=== PATIENT | female | born 1990 | race Caucasian/White ===

== ENCOUNTER 2021-01-26 12:06 | Emergency (ER) | payer BC, OTHER ==
[2021-01-26 12:22] VITALS: BMI 35.2
[2021-01-26] MEDS ORDERED: CASIRIVIMAB/IMDEVIMAB 10 ML in SODIUM CHLORIDE 100 ML IVPB ONE (12:37)
[2021-01-26 13:44] LABS: BASO % 0.7 % (0-2.0); EOS % 5.7 % (0-4.5); HEMATOCRIT 41.3 % (32.4-45.2); HEMOGLOBIN 14.3 GM/dL (10.7-15.3); LYMPH % 31.9 % (8-40); MCH 32.1 pg (25.7-33.7); MCHC 34.5 g/dl (32.0-36.0); MEAN CELL VOLUME 92.8 fl (80-96); MEAN PLT VOLUME 8.1 fl (7.5-11.1); MONO % 7.3 % (3.8-10.2); NEUT % 54.4 % (42.8-82.8); PLATELET COUNT 432 10^3/uL (134-434); RBC 4.45 M/mm3 (3.60-5.2); RDW 14.1 % (11.6-15.6)
[2021-01-26 14:03] LABS: CALCIUM 9.2 mg/dL (8.5-10.1)
[2021-01-26 14:04] LABS: ALBUMIN 3.7 g/dl (3.4-5.0); BLOOD UREA NITROGEN 11.1 mg/dL (7-18)
[2021-01-26 14:07] LABS: CREATININE 0.8 mg/dL (0.55-1.3)
[2021-01-26 14:08] LABS: BILIRUBIN,TOTAL 0.4 mg/dL (0.2-1); TOT PROT 7.9 g/dl (6.4-8.2)
[2021-01-26 15:21] VITALS: BP 107/70; PULSE 78
[2021-01-26 15:30] VITALS: TEMP 98
== END 2021-01-26 15:30 | disposition home or self-care (01) ==
LOC: JCOVINFU 12:06 → JER 12:06
DX: U07.1 COVID-19 (principal)
CPT/HCPCS: 36415; 80053; 85025; 99284-25; M0240; Q0240